=== PATIENT | female | born 1955 | race Caucasian/White ===

== ENCOUNTER → 2021-03-21 07:40 | Outpatient (CLI) | payer BC, SELFPAY ==
--- NOTE | ~2021-03-21 | MR_ITS ---
EXAMINATION: MR knee RT wo con DATE: 03/21/2021 08:32 INDICATION: Right knee pain and limited range of motion. TECHNIQUE: Magnetic resonance imaging (MRI) of the right knee was performed without intravenous contr ast. Sequences included coronal PD-weighted FSE, coronal PD-weighted FS FSE, sagittal T2-weighted FS E, sagittal PD-weighted FS FSE and axial PD weighted fat saturated FSE. COMPARISON: None. FINDINGS: Medial compartment: There is a radial tear near the posterior root of the medial meniscus. There is an additional partial thickness short longitudinal vertical tear extending to the inferior articular surface and the perip heral third of the posterior body of the medial meniscus. Chondral swelling with mild surface regular ity along the lateral margin of the central weightbearing medial femoral condyle. Remaining cartilage is normal. Lateral compartment: Lateral meniscus is normal. Articular cartilage is normal. Patellofemoral compartment: Partial-thickness chondral fissuring without degenerative subchondral changes at the medial patellar facet. Deep chondral fissure at the caudal aspect of the medial trochlea with underlying mild cortica l irregularity and subarticular edema. Ligaments and tendons: Anterior and posterior cruciate ligaments are normal. The medial collateral ligament and fibular mae ateral ligament complex are normal. The extensor mechanism is normal. The visualized medial and later al hamstring tendons as well as the iliotibial band are normal. Fluid: Small right knee joint effusion. No loose osteochondral bodies identified. Small likely partially rup tured Palacio's cyst measuring 3.6 x 2.8 x 1.2 cm with small amount of nonloculated fluid tracking caud ally from the Palacio's cyst along the peripheral margin of the medial head of the gastrocnemius muscle . Osseous/other: Site of a previously noted small focus of subarticular edema at the medial trochlea there is normal m arrow signal. No fracture or pathologic marrow replacing process. IMPRESSION: 1. Medial meniscal tears including a radial tear near the posterior root. 2. 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 3. Likely reactive small right knee joint effusion. 4. Small likely partially ruptured Palacio's cyst. Reviewed, dictated and finalized at location A. IMPRESSION: 1. Medial meniscal tears including a radial tear near the posterior root. 2. Mild medial and patellofemoral compartment osteoarthritis with small regions of chondromalacia at the medial patellofemoral compartment and along the weigh tbearing medial femoral condyle as detailed above. 3. Likely reactive small right knee joint effusion. 4. Small likely partially ruptured Palacio's cyst.
== END ==
PROVIDERS: PCP Family Medicine; Visit Provider Family Medicine
DX: S83.241A Other tear of medial meniscus, current injury, right knee, initial encounter (principal); M25.461 Effusion, right knee; M17.11 Unilateral primary osteoarthritis, right knee
CPT/HCPCS: 73721